=== PATIENT | female | born 1995 | race Caucasian/White ===

== ENCOUNTER 2018-07-03 09:43 | Emergency (ER) | payer BC, OTHER ==
[~2018-07-03] VITALS: Ht 160 cm; Wt 65.8 kg
--- OUTSIDE RECORDS SUMMARY | 2018-07-03 09:48 | XMS REPORT ---
Author Author RODNEY DANIELLE Organization [facility] Address [address] [place] [address] Care Team Providers Care Load Out Worker Name Role Phone RODNEY DANIELLE Unavailable PROBLEMS Unknown Problems ALLERGIES No Information ENCOUNTERS Encounter Location Date Diagnosis [facility] [address] [place] [address] C [id number] [place], [place] [id number] 15 Mar, 2017 [facility] [address] [place] [address] C [id number] [facility] [place] [id number] 14 Mar, 2017 Possible Z32.00 [facility] [address] [place] [address] [id number] [place], [place] [id number] 13 Mar, 2017 Positive test Z32.01 [facility] [address] [place] [address] C [id number] [place] [id number] Dec, [facility] [address] [place] [address] C [id number] [place] [phone] Dec, Visit for control pills maintenance Z30.[address] [id number] [place] [id number] Jun, Encounter for Implanon removal Z30.46 and Visit for control pills maintenance Z30.41 [facility] [address] [facility] [id number] [place] [phone] Sep, IMMUNIZATIONS No Known Immunizations SOCIAL HISTORY Never Assessed REASON FOR VISIT LAB. K[facility] PLAN OF CARE Activity Details Follow Up prn Reason: VITAL SIGNS MEDICATIONS Unknown Medications RESULTS No Results PROCEDURES Procedure Date Ordered Result Body Site ROUTINE VENIPUNCTURE 2017-03-30 N/A CHORIONIC GONADOTROPIN TEST Mar 30, 2017 INSTRUCTIONS MEDICATIONS ADMINISTERED No Known Medications MEDICAL (GENERAL) HISTORY Type Description Date Surgical History wisdom teeth removal
--- OUTSIDE RECORDS SUMMARY | 2018-07-03 09:48 | XMS REPORT ---
Author Author RODNEY DANIELLE Organization [facility] Address [address] [place] [address] Care Team Providers Care Robot Operator Name Role Phone RODNEY DANIELLE Unavailable PROBLEMS Unknown Problems ALLERGIES No Information ENCOUNTERS Encounter Location Date Diagnosis [facility] [address] [place] [address] C [id number] [place] [id number] 15 Mar, 2017 [facility] [address] [place] [address] [id number] [place] [id number] 14 Mar, 2017 Possible Z32.00 [facility] [address] [place] [address] [id number] [place] [phone] 13 Mar, 2017 Positive test Z32.01 [facility] [address] [place] [address] C [id number] [place] [id number] Dec, [facility] [address] [place] [address] C [id number] [place] [id number] Dec, Visit for control pills maintenance Z30.[address] [id number] [place] [phone] Jun, Encounter for Implanon removal Z30.46 and Visit for control pills maintenance Z30.41 [facility] [address] [facility] [id number] [place] [phone] Sep, IMMUNIZATIONS No Known Immunizations SOCIAL HISTORY Never Assessed REASON FOR VISIT Lab results PLAN OF CARE VITAL SIGNS MEDICATIONS Unknown Medications RESULTS No Results PROCEDURES No Known procedures INSTRUCTIONS MEDICATIONS ADMINISTERED No Known Medications MEDICAL (GENERAL) HISTORY Type Description Date Surgical History wisdom teeth removal
--- OUTSIDE RECORDS SUMMARY | 2018-07-03 09:48 | XMS REPORT | Continuity of Care Document ---
Demographics Preferred Language Unknown Marital Status Unknown Scientologist Affiliation Unknown Race Unknown Ethnic Group Unknown Author Author [facility] [place] [facility] Address Unknown Phone Unavailable Allergies There is no data. Medications There is no data. Problems There is no data. Procedures There is no data. Results There is no data. Encounters ACCT No. Visit Date/Time Discharge Status Pt. Type Provider Facility Loc./Unit Complaint [id number] 09/23/2012 17:15:51 RECURRING [id number] 03/30/2017 14:40:00 03/30/2017 23:59:59 CLS Outpatient RODNEY DANIELLE
--- OUTSIDE RECORDS SUMMARY | 2018-07-03 09:48 | XMS REPORT ---
Author Author RODNEY DANIELLE Organization [facility] Address [address] [place] [address] Care Team Providers Care Lithography Contact Worker Name Role Phone RODNEY DANIELLE Unavailable PROBLEMS Unknown Problems ALLERGIES No Information ENCOUNTERS Encounter Location Date Diagnosis [facility] [address] [place] [address] C [id number] [place] [id number] 15 Mar, 2017 [facility] [address] [place] [address] C [id number] [place], [place] [id number] 14 Mar, 2017 Possible Z32.00 [facility] [address] [place] [address] [id number] [place] [phone] 13 Mar, 2017 Positive test Z32.01 [facility] [address] [place] [address] C [id number] [place] [id number] Dec, [facility] [address] [place] [address] C [id number] [place] [phone] Dec, Visit for control pills maintenance Z30.[address] [id number] [place] [id number] Jun, Encounter for Implanon removal Z30.46 and Visit for control pills maintenance Z30.41 [facility] [address] [facility] [id number] [place] [phone] Sep, IMMUNIZATIONS No Known Immunizations SOCIAL HISTORY Never Assessed REASON FOR VISIT wanting labs done PLAN OF CARE VITAL SIGNS MEDICATIONS Unknown Medications RESULTS No Results PROCEDURES Procedure Date Ordered Result Body Site CHORIONIC GONADOTROPIN TEST Mar 29, 2017 INSTRUCTIONS MEDICATIONS ADMINISTERED No Known Medications MEDICAL (GENERAL) HISTORY Type Description Date Surgical History wisdom teeth removal
--- NOTE | 2018-07-03 11:54 | ED General ---
General Chief Complaint: General Problems/Pain Stated Complaint: DIZZINESS;NUMB HANDS Nursing Triage Note: Pt reports joint swelling, bruising to arms x 10days. Pt reports dizziness and palpitations starting at work today. pt was seen in [place] ED and dx w/ bug bits on arms. Pt has PCP appt today at 1330. Nursing Sepsis Screen: No Definite Risk Source of Information: Patient Exam Limitations: No Limitations History of Present Illness Date Seen by Provider: Jul 03, 2018 Time Seen by Provider: 11:52 Initial Comments To ER with reports of bruising to the arms for 10 days. At the onset of this she was seen at [place] emergency room and diagnosed with bug bites. She reports associated knee discomfort and ankle discomfort/swelling. These erythematous tender non-itchy nodules are on the front of her shins and the dorsal aspect of her arms. Nothing on the torso or face. She's never had this before. She is otherwise healthy. No other complaints such as sore throat, fevers chills nausea or abdominal pain or weight loss. She has been using ibuprofen [id number] without relief. Timing/Duration: Other Severity: Moderate Associated Systoms: No Fever/Chills Allergies and Home Medications Allergies Coded Allergies: Penicillins (Unverified Allergy, Unknown, 07/03/18) Patient Home Medication List Home Medication List Reviewed: Yes Review of Systems Review of Systems Constitutional: see HPI; No fever EENTM: see HPI Respiratory: no symptoms reported Cardiovascular: no symptoms reported Genitourinary: no symptoms reported Musculoskeletal: no symptoms reported Skin: see HPI Psychiatric/Neurological: No Symptoms Reported Hematologic/Lymphatic: No Symptoms Reported Past Yakypqm-Xeasel-Gqxkja Hx Patient Social History Alcohol Use: Occasionally Uses Recreational Drug Use: No Smoking Status: Current Someday Smoker Type Used: Cigarettes Recent Foreign Travel: No Contact w/Someone Who Travel: No Recent Infectious Disease Expo: No Recent Hopitalizations: No Seasonal Allergies Seasonal Allergies: No Past Medical History Surgeries: Yes (wisdom teeth) Respiratory: No Cardiac: No Neurological: No Genitourinary: No Gastrointestinal: No Musculoskeletal: No Endocrine: No HEENT: No Cancer: No Psychosocial: No Integumentary: No Blood Disorders: No Physical Exam Vital Signs Vital Signs - First Documented 07/03/18 10:28 Temp 97.5 Pulse 97 Resp 18 B/P (MAP) 138/69 (92) Pulse Ox 99 O2 Delivery Room Air Capillary Refill : Less Than 3 Seconds Height, Weight, BMI Height: 5'3.00" Weight: 145lbs. oz. 65.480537jb; BMI Method:Stated General Appearance: No Apparent Distress, WD/WN Eyes: Bilateral Eye Normal Inspection, Bilateral Eye PERRL, Bilateral Eye EOMI HEENT: PERRL/EOMI, TMs Normal Neck: Full Range of Motion, Normal Inspection Respiratory: No Accessory Muscle Use Neurologic/Psychiatric: Alert, Oriented x3, No Motor/Sensory Deficits Skin: Normal Color, Warm/Dry, Other (several discrete 1-2 cm erythematous tender nodules to the anterior shins and dorsal aspect of the distal forearms. Nothing on the torso. These are nonulcerated. These do lula. These are raised , are tender and nonpruritic. There is one on the distal left forearm and left lower leg has an ecchymotic appearance in the center. These nodules are only present on the anterior lower legs, not on the posterior) Comments There is no palpable effusion of the knee or ankles. Progress/Results/Core Measures Suspected Sepsis Recent Fever Within 48 Hours: No Infection Criteria Present: Suspected New Infection New/Unexplained Altered Menta: No Sepsis Screen: No Definite Risk SIRS Temperature:97.5 Pulse: 97 Respiratory Rate: 18 Laboratory Tests 07/03/18 11:46: White Blood Count 12.7H Blood Pressure 138 /69 Mean: 92 Laboratory Tests 07/03/18 11:46: Creatinine 0.61, Platelet Count 317, Total Bilirubin 0.3 Results/Orders Lab Results Laboratory Tests Test 07/03/18 11:30 07/03/18 11:46 07/03/18 12:20 Range/Units White Blood Count 12.7 H 4.3-11.0 10^3/uL Red Blood Count 4.38 4.35-5.85 10^6/uL Hemoglobin 13.7 11.5-16.0 G/DL Hematocrit 40 35-52 % Mean Corpuscular Volume 90 80-99 FL Mean Corpuscular Hemoglobin 31 25-34 PG Mean Corpuscular Hemoglobin Concent 35 32-36 G/DL Red Cell Distribution Width 12.3 10.0-14.5 % Platelet Count 317 130-400 10^3/uL Mean Platelet Volume 9.1 7.4-10.4 FL Neutrophils (%) (Auto) 75 42-75 % Lymphocytes (%) (Auto) 18 12-44 % Monocytes (%) (Auto) 5 0-12 % Eosinophils (%) (Auto) 2 0-10 % Basophils (%) (Auto) 0 0-10 % Neutrophils # (Auto) 9.5 H 1.8-7.8 X 10^3 Lymphocytes # (Auto) 2.3 1.0-4.0 X 10^3 Monocytes # (Auto) 0.7 0.0-1.0 X 10^3 Eosinophils # (Auto) 0.2 0.0-0.3 10^3/uL Basophils # (Auto) 0.0 0.0-0.1 10^3/uL Erythrocyte Sedimentation Rate 23 H 0-20 MM/HR Sodium Level 139 135-145 MMOL/L Potassium Level 4.1 3.6-5.0 MMOL/L Chloride Level 108 H 98-107 MMOL/L Carbon Dioxide Level 21 21-32 MMOL/L Anion Gap 10 5-14 MMOL/L Blood Urea Nitrogen 10 7-18 MG/DL Creatinine 0.61 0.60-1.30 MG/DL Estimat Glomerular Filtration Rate > 60 BUN/Creatinine Ratio 16 Glucose Level 87 70-105 MG/DL Calcium Level 9.4 8.5-10.1 MG/DL Corrected Calcium 9.2 8.5-10.1 MG/DL Total Bilirubin 0.3 0.1-1.0 MG/DL Aspartate Amino Transf (AST/SGOT) 14 5-34 U/L Alanine Aminotransferase (ALT/SGPT) 12 0-55 U/L Alkaline Phosphatase 57 40-136 U/L C-Reactive Protein High Sensitivity 5.41 H 0.00-0.50 MG/DL Total Protein 7.8 6.4-8.2 GM/DL Albumin 4.2 3.2-4.5 GM/DL Group A Streptococcus Screen NEGATIVE NEGATIVE My Orders Orders - TONIA ALVAREZ APRN Ua Culture If Indicated (07/03/18 11:50) Drug Screen Stat (Urine) (07/03/18 11:50) Cbc With Automated Diff (07/03/18 11:50) Comprehensive Metabolic Panel (07/03/18 11:50) Erythrocyte Sedimentation Rate (07/03/18 11:50) Hs C Reactive Protein (07/03/18 11:50) Iv Heplock-Insert (Order) (07/03/18 11:50) Anti Streptolysin O Titer (07/03/18 11:52) Rapid Strep A Screen (07/03/18 11:55) Chest 1 View, Ap/Pa Only (07/03/18 12:00) Vital Signs/I&O 07/03/18 10:28 Temp 97.5 Pulse 97 Resp 18 B/P (MAP) 138/69 (92) Pulse Ox 99 O2 Delivery Room Air Capillary Refill : Less Than 3 Seconds Blood Pressure Mean: 92 Departure Communication (Admissions) With Alessandra in [facility] pharmacy here in [place]. Potassium iodide is not available. We will do a short course of steroids. Impression Primary Impression: Erythema nodosum, acute form Disposition: HOME, SELF-CARE Condition: Stable Departure-Patient Inst. Decision time for Depature: 12:06 Referrals: NO,LOCAL PHYSICIAN (PCP) Primary Care Physician Patient Instructions: Erythema Nodosum Add. Discharge Instructions: 1. Steroids as directed 2. Return to ER for any concerns 3. Follow-up with primary care within 2 weeks for recheck. These should improve gradually over the next 2-3 weeks. All discharge instructions reviewed with patient and/or family. Voiced understanding. Scripts Prednisone (Prednisone) 5 Mg Tablet 5 MG PO UD, #36 TAB take 8 tablets on day 1 then reduced by one tablet daily until gone Prov: TONIA ALVAREZ APRN 07/03/18 Work/School Note: Work Release Form Date Seen in the Emergency Department: Jul 03, 2018 Return to Work: Jul 05, 2018 TONIA ALVAREZ APRN Jul 03, 2018 11:54
[2018-07-03 11:55] LABS: BASOPHILS % (AUTO) 0 % (0-10); EOSINOPHILS # (AUTO) 0.2 10^3/uL (0.0-0.3); EOSINOPHILS % (AUTO) 2 % (0-10); HEMATOCRIT 40 % (35-52); HEMOGLOBIN 13.7 G/DL (11.5-16.0); LYMPHOCYTES # (AUTO) 2.3 X 10^3 (1.0-4.0); LYMPHOCYTES % (AUTO) 18 % (12-44); MEAN CORPUSCULAR HEMOGLOBIN 31 PG (25-34); MEAN CORPUSCULAR HGB CONC 35 G/DL (32-36); MEAN CORPUSCULAR VOLUME 90 FL (80-99); MEAN PLATELET VOLUME 9.1 FL (7.4-10.4); MONOCYTES # (AUTO) 0.7 X 10^3 (0.0-1.0); MONOCYTES % (AUTO) 5 % (0-12); NEUTROPHILS # (AUTO) 9.5 X 10^3 (1.8-7.8); NEUTROPHILS % (AUTO) 75 % (42-75); PLATELET COUNT 317 10^3/uL (130-400); RED BLOOD COUNT 4.38 10^6/uL (4.35-5.85); RED CELL DISTRIBUTION WIDTH 12.3 % (10.0-14.5); WHITE BLOOD COUNT 12.7 10^3/uL (4.3-11.0)
[2018-07-03 12:14] LABS: ALANINE AMINOTRANSFERASE 12 U/L (0-55); ALBUMIN 4.2 GM/DL (3.2-4.5); ALKALINE PHOSPHATASE 57 U/L (40-136); BILIRUBIN,TOTAL 0.3 MG/DL (0.1-1.0); BUN/CREATININE RATIO 16; CALCIUM 9.4 MG/DL (8.5-10.1); CARBON DIOXIDE 21 MMOL/L (21-32); CHLORIDE 108 MMOL/L (98-107); CREATININE SERUM 0.61 MG/DL (0.60-1.30); GFR ESTIMATED > 60; GLUCOSE 87 MG/DL (70-105); POTASSIUM 4.1 MMOL/L (3.6-5.0); SODIUM 139 MMOL/L (135-145); TOTAL PROTEIN 7.8 GM/DL (6.4-8.2)
[2018-07-03 12:20] LABS: ERYTHROCYTE SEDIMENTATION RATE 23 MM/HR (0-20)
--- NOTE | 2018-07-03 12:50 | Diagnostic Imaging Report ---
INDICATION: None given. TECHNIQUE: A frontal chest was obtained at 1223 hours. FINDINGS: The heart and mediastinal silhouette are normal in appearance. The lungs are clear. There is no pneumothorax or pleural fluid. IMPRESSION: Negative chest. Dictated by: Dictated on workstation # [id number]
[2018-07-03] MEDS ORDERED: PRED5TAB PO (12:52)
[2018-07-03 13:05] VITALS: BP 123/87
[2018-07-03 13:07] LABS: BILIRUBIN,URINE NEGATIVE (NEGATIVE); CLARITY,URINE CLEAR; COLOR,URINE YELLOW; GLUCOSE, URINE (UA) NEGATIVE (NEGATIVE); KETONES,URINE NEGATIVE (NEGATIVE); LEUKOCYTE ESTERASE ,URINE NEGATIVE (NEGATIVE); NITRITE,URINE NEGATIVE (NEGATIVE); PH,URINE 6 (5-9); PROTEIN,URINE NEGATIVE (NEGATIVE); UROBILINOGEN,URINE NORMAL (NORMAL)
[2018-07-03 13:15] LABS: BACTERIA,URINE NEGATIVE /HPF
[2018-07-03 13:21] LABS: AMPHETAMINE SCREEN, URINE NEGATIVE (NEGATIVE); BARBITURATE SCREEN URINE NEGATIVE (NEGATIVE); BENZODIAZEPINES SCREEN URINE NEGATIVE (NEGATIVE); CANNABINOID SCREEN, URINE NEGATIVE (NEGATIVE); COCAINE SCREEN URINE NEGATIVE (NEGATIVE); METHADONE STAT NEGATIVE (NEGATIVE); METHAMPHETAMINE SCREEN URINE S NEGATIVE (NEGATIVE); OPIATE SCREEN URINE NEGATIVE (NEGATIVE); OXYCODONE STAT NEGATIVE (NEGATIVE); PROPOXYPHENE STAT NEGATIVE (NEGATIVE); TRICYCLIC ANTIDEPRESSANTS SCRE NEGATIVE (NEGATIVE)
== END 2018-07-03 13:04 | disposition home or self-care (01) ==
LOC: ER 09:44
DX: L52 Erythema nodosum (principal); F17.210 Nicotine dependence, cigarettes, uncomplicated; Z88.0 Allergy status to penicillin
CPT/HCPCS: 36415; 71045; 80053; 80306; 81000; 85025; 85652; 86060; 86141; 87430

== ENCOUNTER 2023-03-08 21:31 | Emergency (ER) | payer OTHER ==
[~2023-03-08] VITALS: Ht 162.6 cm; Wt 86.2 kg
[~2023-03-08 21:31] MED LIST: PRED5TAB PO
[2023-03-08] MEDS ORDERED: LORazepam 1 MG TABLET PO ONE (22:15)
--- NOTE | 2023-03-08 22:16 | ED Psychosocial ---
General Chief Complaint: General Problems/Pain Stated Complaint: DIZZY/SHAKEY Nursing Triage Note: PT AMB TO ED BY POV WITH C/O SHAKINESS, RESTLESSNESS, AND INCREASED ANXIETY. PT REPORTS SHE BEGAN FEELING THIS WAY LAST NIGHT AND HAD DIFFICULTY SLEEPING, ANXIETY WORSE THIS EVENING. PT HAS HX ANXIETY, PANIC DISORDER, AND BIPOLAR DISORDER. PT DENIES ANY RECENT MEDICATION CHANGES OR INCREASED STRESS. DENIES CP, FEVER, OR ANY OTHER SX AT THIS TIME. Source: patient Exam Limitations: no limitations History of Present Illness Date Seen by Provider: Mar 08, 2023 Time Seen by Provider: 21:58 Initial Comments Patient is a 27-year-old female with a history of anxiety, depression and recent diagnosis of bipolar disorder who presents to the emergency room with 1 week of increasing anxiety, tremors, feeling restless, insomnia. She has tried melatonin but it gives her nightmares. She has tried chamomile tea. She was started on Vraylar about 3 months ago. She also takes his hydroxyzine tablets 25 mg 1/2-1 every 8 hours as needed. She has been taking it without any relief of symptoms. She denies suicidal or homicidal ideation. She denies auditory and visual hallucinations. She has no prior history of self-harm. She denies any recent illnesses such as abnormal vaginal bleeding, dysuria, chest pain. She is a little short of breath. She has had some diarrhea which she attributes to her anxiety. She denies any recent stress such as job issues or family issues. She states she has a supportive partner. She is very preoccupied with the restless feeling that she has. She does have a therapist through [facility]. She did reach out yesterday and this morning but has not heard back. No pending appointments currently. She is concerned that the Vraylar is exacerbating her symptoms. Timing/Duration: week, getting worse Severity: severe Associated Symptoms: anxiety Allergies and Home Medications Allergies Coded Allergies: Penicillins (Unverified Allergy, Unknown, 07/03/18) Patient Home Medication List Home Medication List Reviewed: Yes Prednisone (Prednisone) 5 Mg Tablet, 5 MG PO UD Prescribed by: TONIA ALVAREZ on 07/03/18 1252 Review of Systems Constitutional: see HPI EENTM: no symptoms reported Respiratory: short of breath Cardiovascular: no symptoms reported Gastrointestinal: diarrhea Genitourinary: no symptoms reported LMP: Feb 15, 2023 Control/STD Prophylaxis: None Musculoskeletal: no symptoms reported Skin: no symptoms reported Psychiatric/Neurological: Anxiety, Depressed, Emotional Problems, Tremors All Other Systems Reviewed Negative Unless Noted: Yes Past Wohoznt-Nqmlxy-Zscisl Hx Seasonal Allergies Seasonal Allergies: No Past Medical History Surgeries: Yes (wisdom teeth) Respiratory: No Cardiac: No Neurological: No Genitourinary: No Gastrointestinal: No Musculoskeletal: No Endocrine: No HEENT: No Cancer: No Psychosocial: No Integumentary: No Blood Disorders: No Physical Exam Vital Signs - First Documented 03/08/23 21:38 Temp 37.8 Pulse 106 Resp 22 B/P (MAP) 159/95 (116) Pulse Ox 98 O2 Delivery Room Air Capillary Refill : Less Than 3 Seconds Height, Weight, BMI Height: 5'3.00" Weight: 145lbs. oz. 65.535904gt; 32.00 BMI Method:Stated General Appearance: WD/WN, moderate distress HEENT: PERRL/EOMI Neck: full range of motion, supple, normal inspection Respiratory: lungs clear, normal breath sounds, no respiratory distress, no accessory muscle use Cardiovascular: regular rate, rhythm Extremities: normal range of motion, normal inspection Neurologic/Psychiatric: alert, oriented x 3, other (anxious. resting tremors. tearful. upset.) Appearance/Memory: appropriate appearance, appropriate insight Behavior/Eye Contact: cooperative, good eye contact, normal speech, increased rate of speech Thoughts/Hallucinations: normal thought pattern, no apparent hallucination; No auditory hallucinations, No delusions, No flight of ideas, No grandiose, No incoherent, No obsessive, No paranoid, No persecution, No phobic, No tactile hallucinations, No visual hallucinations Skin: normal color, warm/dry Progress/Results/Core Measures Results/Orders My Orders Orders - JANETH WOODALL MD Lorazepam Tablet (Lorazepam Tablet) (03/08/23 22:15) Vital Signs/I&O 03/08/23 21:38 Temp 37.8 Pulse 106 Resp 22 B/P (MAP) 159/95 (116) Pulse Ox 98 O2 Delivery Room Air Blood Pressure Mean: 116 Progress Progress Note : Time: 22:15 Progress Note Patient seen and evaluated by me. Evaluation today includes physical exam. She is quite agitated, tremoring, tearful and anxious. Heart is regular slightly tachycardic. Lungs are clear. Normal thyroid without any appreciable masses. No rashes, no joint pain or swelling. No focal neurologic deficits. Differential diagnosis based on history and physical, panic attack Patient is treated with 1 mg of p.o. Ativan. We discussed dosing of her h ydroxyzine and I recommended that she could increase the dosing if she desired. We talked about additional sleep medications to include warm milk, Unisom, Tylenol PM. We also discussed decreased cell phone usage in the last hour before bed, creating a "safe space". We discussed journaling, mindfulness techniques. I encouraged her to reach out to her therapist again tomorrow. She is agreeable. She verbalizes appreciation. Return precautions provided in both verbal and written format. All questions are sought and answered. Departure Impression Primary Impression: Anxiety Disposition: 01 HOME, SELF-CARE Condition: Stable Departure-Patient Inst. Decision time for Depature: 22:17 Referrals: [facility] (PCP/Family) Primary Care Physician Patient Instructions: Anxiety, Adult ED Add. Discharge Instructions: Continue your daily medications as prescribed. You can increase the Vraylar to 1 tablet every 6 hours as needed. Remember your mindfulness techniques. Try to start Journalling at least every other day. A "purge or rage" journal as well as a "gratefulness" journal. Call your Therapist in the morning and try to get in for an appointment in the next week. You can try over the counter Unisom for sleep or tylenol pm. You could aslo try 2 of you Hydroxyzine at bedtime for sleep. Stop "screen time" 1 hour before bed and try and create a "safe and calm" space before sleep. Good sleep hygiene is essential. Return to the Emergency Department for any new, concerning or emergent complaints. Copy Copies To 1: HAFSA GUZMAN KATHRYN M MD Mar 08, 2023 22:16
[2023-03-08 23:16] VITALS: BP 147/95
== END 2023-03-08 23:16 | disposition home or self-care (01) ==
LOC: EDUNIT# 21:31 → ER 21:34
DX: F41.9 Anxiety disorder, unspecified (principal)
CPT/HCPCS: 99283